=== PATIENT | male | born 1965 | race Caucasian/White ===

== ENCOUNTER 2020-06-03 13:51 | Inpatient (IN) | payer MEDICAID, OTHER ==
[~2020-06-03] VITALS: Ht 182.9 cm; Wt 120.0 kg
[2020-06-03] MEDS ORDERED: FUROSEMIDE 40 MG/4 ML VIAL IV ONE (14:00)
[2020-06-03 14:23] LABS: Basophils # (auto) 0.1 10 ^3/uL (0-0.2); Basophils % (auto) 1.3 % (0.0-2.0); Eosinophils # (auto) 0.1 10 ^3/uL (0-0.8); Eosinophils % (auto) 1.7 % (0.0-7.0); Hematocrit 47.8 % (41.0-53.0); Hemoglobin 15.9 g/dL (13.5-17.5); Lymphocytes # (auto) 1.9 10 ^3/uL (0.4-5.4); Lymphocytes % (auto) 27.3 % (10.0-50.0); Mean Corpuscular Hemoglobin 32.5 pg (28.0-32.0); Mean Corpuscular Hgb Conc. 33.2 g/dL (32.0-36.0); Mean Corpuscular Volume 97.9 fL (80.0-100.0); Monocytes # (auto) 0.8 10 ^3/uL (0-1.3); Monocytes % (auto) 11.7 % (0.0-12.0); Neutrophils # (auto) 4.1 10 ^3/uL (1.6-8.6); Nucleated Red Blood Cells % 0.1 %; Platelet Count (auto) 163 10^3/uL (140-450); Red Blood Cells 4.88 10^6/uL (4.5-5.90); White Blood Cell 7.1 10^3/uL (4.4-10.8)
[2020-06-03 14:38] LABS: Albumin 3.5 g/dL (3.4-5.0); BUN/Creatinine Ratio 24.2; Calcium 9.2 mg/dL (8.5-10.1); Magnesium 1.9 mg/dL (1.6-2.6); Potassium 4.6 mmol/L (3.5-5.1)
[2020-06-03 14:40] LABS: Bilirubin, Total 0.4 mg/dL (0.2-1.0); Total Protein 7.5 g/dL (6.4-8.2)
[2020-06-03 14:52] LABS: Urine Bacteria NONE SEEN /hpf (None Seen); Urine Blood Negative /uL (Negative); Urine Hyaline Cast MOD /lpf (0 - 2); Urine Specific Gravity 1.022 (1.001-1.035); Urine WBC 1 /hpf (0 - 3)
[2020-06-03] MEDS ORDERED: IOHEXOL 350 MG/ML 100ML IJ ONE (14:59)
[2020-06-03 15:10] LABS: Amphetamine Screen, Urine POSITIVE (NEGATIVE); Barbiturate Scree,Urine NEGATIVE (NEGATIVE); Benzodiazephine Screen, Urine NEGATIVE (NEGATIVE); Cannabinoid Screen, Urine NEGATIVE (NEGATIVE); Cocaine Screen, Urine NEGATIVE (NEGATIVE)
[2020-06-03 15:18] LABS: Opiate Scree,Urine NEGATIVE (NEGATIVE); Phencyclidine Screen, Urine NEGATIVE (NEGATIVE)
[2020-06-03] MEDS ORDERED: DEXTROSE (50%) 50ML SYRG IV PRN (16:00)
[2020-06-03] MEDS ORDERED: MORPHINE SULF INJ 2 MG/ML SYRINGE 1ML IV PRN (16:00)
[2020-06-03] MEDS ORDERED: NITROGLYCERIN 0.4 MG SL TAB SL PRN (16:00)
[2020-06-03] MEDS ORDERED: COLCHICINE 0.6 MG CAP PO PRN ×2 (16:00→16:30)
[2020-06-03] MEDS: InsuLIN REG 1unit/0.01ml Soln (100units/ml) SC SCH ×2 (17:00→22:00)
[2020-06-03] MEDS: ACCU-CHEK COMFORT CURVE STRIP VI SCH ×2 (17:11→22:00)
[2020-06-03 18:18] VITALS: BP 146/104
--- NOTE | 2020-06-03 18:45 | NUR ---
MD MCCLELLAN AT BEDSIDE UPDATED MD ON PATIENT'S STATUS. MD IS AWARE AND ORDERED LOVENOX TO BE HELD TOMORROW, NPO AFTER MIDNIGHT AND CONSENTS FOR [facility] TOMORROW. WILL FOLLOW THROUGH WITH ORDERS.
[2020-06-03] MEDS ORDERED: PNEUMOCOCCAL VACC POLYS 25 MCG/0.5 ML VIAL IM ONE (19:00)
--- NOTE | 2020-06-03 19:10 | NUR ---
Telemetry admit from [facility]O admitted to Telemetry unit after SBAR received from VARUN Dawson. Patient oriented to Mariana Rojo RN primary RN, unit, room, bed, and unit policies regarding patient care and visiting hours. Patient now on continuous telemetry monitoring, tele box #75 and telemetry reading on arrival to unit is Sinus Rhythm 80 bpm. Patient weighed by bed scale and encouraged to call if they need something. All questions and concerns addressed, patient verbalized understanding.
--- NOTE | 2020-06-03 19:12 | NUR ---
CLOSING SHIFT NOTE ENDORSED CARE TO [employer]GRAM[employer] RN RYAN. PATIENT HAS NO S/S OF DISTRESS/SOB OR PAIN AT THIS TIME.
[2020-06-03] MEDS ORDERED: SPIRONOLACTONE 25 MG TAB PO ONE (19:15)
[2020-06-03] MEDS ORDERED: FUROSEMIDE 20 MG/2 ML VIAL IV ONE (19:15)
--- NOTE | 2020-06-03 19:20 | NUR ---
Opening Shift Note Assumed care of patient after receiving report. Patient is awake and alert with no S/S of distress/SOB or pain. Call light within reach, bed in lowest locked position x2 side rails, HOB semi fowlers. Instructed on POC and to call for assist PRN, will continue to monitor for changes Q1hr and PRN.
--- NOTE | 2020-06-03 20:38 | NUR ---
US tech at bedside for MD ordered venous Doppler of bilateral lower extremities.
[2020-06-03 22:00] VITALS: BP 138/99
--- NOTE | 2020-06-04 04:00 | NUR ---
CHG wipes CHG wipes and complete linen change performed.
[2020-06-04 05:00] VITALS: BP 119/87
[2020-06-04] MEDS: InsuLIN REG 1unit/0.01ml Soln (100units/ml) SC SCH ×4 (06:23→21:12)
[2020-06-04] MEDS: ACCU-CHEK COMFORT CURVE STRIP VI SCH ×4 (06:23→21:12)
[2020-06-04 08:00] VITALS: BP 140/111
--- NOTE | 2020-06-04 08:00 | NUR ---
Opening Shift Note Assumed care of patient, awake and alert. No S/S of distress/SOB or pain. Insructed on POC and to callfor assist PRN, will continue to monitor for changes Q1hr and PRN.
[2020-06-04] MEDS: LISINOPRIL 20 MG TAB PO SCH (08:10)
--- NOTE | 2020-06-04 08:17 | NUR ---
Patient taken down to laboratory phlebotomist
[2020-06-04 08:34] VITALS: BP 139/106
[2020-06-04] MEDS: ALLOPURINOL 100 MG TAB PO SCH (08:43)
[2020-06-04] MEDS: ENOXAPARIN SOD 40 MG/0.4 ML SYRINGE SC SCH (08:44)
[2020-06-04 09:18] LABS: INR 1.01 (0.9-1.15); Partial Thromboplastin Time 24.8 sec (23.0-31.2)
[2020-06-04] MEDS ORDERED: SODIUM CHL 0.9% 0 ML ONE (09:44)
[2020-06-04] MEDS ORDERED: fentaNYL CITRATE 100 MCG/2 ML VL ONE (09:44)
[2020-06-04] MEDS ORDERED: HEPARIN SODIUM (PORCINE) 5000 UNITS/ML 1ML VIAL ONE (09:44)
[2020-06-04] MEDS ORDERED: MIDAZOLAM HCL 1MG/1ML-2 ML VIAL ONE (09:44)
[2020-06-04] MEDS ORDERED: VERAPAMIL 2.5MG/ML INJ 2ML VIAL IV ONE (09:44)
[2020-06-04] MEDS ORDERED: ANGIOMAX 250 MG VIAL IV ONE (09:44)
[2020-06-04] MEDS ORDERED: LIDOCAINE 2%HCL (LOCAL ANESTH.) INJ 20ML MDV ONE (09:45)
[2020-06-04] MEDS ORDERED: IODIXANOL 320MG/ML 100ML BTL IV ONE (09:49)
--- NOTE | 2020-06-04 10:00 | NUR ---
Intervention Note PT out of unit in laboratory clerk Addendum: 06/04/20 at 1020 by PAULA MAYBERRY RN RN Amended: Links added.
--- NOTE | 2020-06-04 10:14 | NUR ---
Intervention Note PT out of unit in ammunition assembly i laborer
--- NOTE | 2020-06-04 10:16 | NUR ---
Intervention Note PT out of unit in hot plate plywood press laborer
--- NOTE | 2020-06-04 10:17 | NUR ---
Intervention Note PT out of unit in optical laboratory technician Addendum: 06/04/20 at 1020 by PAULA MAYBERRY RN RN Amended: Links added.
--- NOTE | 2020-06-04 10:17 | NUR ---
Intervention Note PT out of unit in supervisor laboratory Addendum: 06/04/20 at 1020 by PAULA MAYBERRY RN RN Amended: Links added.
--- NOTE | 2020-06-04 10:18 | NUR ---
Intervention Note PT out of unit in labor supervisor Addendum: 06/04/20 at 1020 by PAULA MAYBERRY RN RN Amended: Links added.
--- NOTE | 2020-06-04 10:18 | NUR ---
Intervention Note PT out of unit in laboratory manager Addendum: 06/04/20 at 1020 by PAULA MAYBERRY RN RN Amended: Links added.
--- NOTE | 2020-06-04 10:20 | NUR ---
Intervention Note PT out of unit in mechanical laboratory technician Addendum: 06/04/20 at 1020 by PAULA MAYBERRY RN RN Amended: Links added.
--- NOTE | 2020-06-04 10:45 | NUR ---
Patient brought to recovery via bed, report received from VARUN Sanchez and VARUN Prince. Patient is AO x 4, no s/s of distress or SOB. Right radial site and right AC site are both benign, no s/s of bleeding or hematoma formation. Positive circulation, movement and sensation noted to bilateral extremities. Continuous pulse ox in place to right first finger. Patient educated on post-procedure care, verbalized understanding to instructions.
--- NOTE | 2020-06-04 11:02 | NUR ---
Report given to VARUN Ziegler.
--- NOTE | 2020-06-04 11:10 | NUR ---
Patient resting in bed with eyes closed, no s/s of distress. Right radial and right AC site remain unchanged.
--- NOTE | 2020-06-04 11:36 | NUR ---
Patient taken to telemetry unit via bed, monitor worker is in place. No s/s of distress noted upon departure. Primary RN, Loraine present at bedside to witness right radial and right AC site benign, no s/s of bleeding or hematoma. Bed is set in lowest locked position with side rails up x 2, call light is within reach and bed alarm set on for safety. Care endorsed to VARUN Baron.
--- NOTE | 2020-06-04 11:38 | NUR ---
Patient back from lab assistant Patient is s/p heart cath. Dressing to right AC clean, dry and intact. Vasc band to right wrist, no signs of bleeding or hematoma noted at this time. This RN instructed to begin removing air from vasc band at 1200. Patient is awake, alert and oriented x4. Vital signs assessed. Patient updated on plan of care, patient verbalized understanding. Bed in low and locked position, call light within reach. Will continue to monitor Q1 hour and PRN.
[2020-06-04 13:00] VITALS: BP 143/101
--- NOTE | 2020-06-04 13:21 | NUR ---
Vasc Band removal Vasc band removed at this time and pressure dressing applied. No signs of hematoma, bleeding. Circulation intact. Instructed pt on education regarding vasc band removal.
[2020-06-04 17:00] VITALS: BP 150/100
--- NOTE | 2020-06-04 17:45 | NUR ---
Dr. Basurto at nurse station MD at station updating this RN on plan of care. New orders placed. Will continue to monitor Q1 hour and PRN.
--- NOTE | 2020-06-04 19:13 | NUR ---
Closing Note Report given to night order selector RN. No signs or symptoms of distress noted at this time.
[2020-06-04] MEDS: GABAPENTIN 300 MG CAP PO PRN (19:17)
[2020-06-04] MEDS: SILDENAFIL CITRATE 20 MG TAB PO SCH (19:17)
--- NOTE | 2020-06-04 20:00 | NUR ---
Opening Shift Note Assumed care of patient, awake and alert. No S/S of distress/SOB or pain. Instructed on POC and to call for assist PRN, will continue to monitor for changes Q1hr and PRN.
[2020-06-04 22:00] VITALS: BP 139/87
[2020-06-05] MEDS: GABAPENTIN 300 MG CAP PO PRN (04:56)
[2020-06-05 05:00] VITALS: BP 98/73
[2020-06-05] MEDS: InsuLIN REG 1unit/0.01ml Soln (100units/ml) SC SCH ×2 (06:39→11:30)
[2020-06-05] MEDS: ACCU-CHEK COMFORT CURVE STRIP VI SCH ×2 (06:39→11:30)
--- NOTE | 2020-06-05 07:30 | NUR ---
Opening Note Received report from night worker RN. Patient is awake, alert and oriented x4. No signs or symptoms of distress noted at this time. Patient denies pain or shortness of breath at this time. Patient is on room air, respirations even and unlabored. Reviewed plan of care with patient, patient verbalized understanding. Bed in low and locked position, call light within reach. Will continue to monitor Q1 hour and PRN.
[2020-06-05 08:00] VITALS: BP 137/91
[2020-06-05] MEDS: SILDENAFIL CITRATE 20 MG TAB PO SCH (08:00)
[2020-06-05 09:00] VITALS: BP 137/91
[2020-06-05] MEDS: ENOXAPARIN SOD 40 MG/0.4 ML SYRINGE SC SCH (10:00)
[2020-06-05] MEDS: ALLOPURINOL 100 MG TAB PO SCH (10:03)
[2020-06-05] MEDS: LISINOPRIL 20 MG TAB PO SCH (10:03)
[2020-06-05] MEDS ORDERED: SILD20TA PO (10:47)
[2020-06-05 11:38] VITALS: BP 125/89
--- NOTE | 2020-06-05 12:16 | NUR ---
Discharge Discharge instructions given as ordered. Encourage to follow up with PMD as instructed. All questions and concerns addressed. Patient verbalized understanding. Medication reconciliation form completed and copy given to patient. IV removed with catheter intact, pressure dressing applied. weight control engineer removed and sent back to ICU. Patient ambulated to private vehicle with all personal belongings, accompanied by this RN. No signs or symptoms of distress noted at this time. Patient instructed to excelsior picker medications from preferred pharmacy.
[2020-06-05 12:56] VITALS: BP 150/83
== END 2020-06-05 12:20 | disposition home or self-care (01) | DRG 192 ==
LOC: ER 13:51 → TELE 13:52 → TELE-WESTW 17:56
PROVIDERS: ADMIT Hospitalist; ATTEND Hospitalist
PROC: B2111ZZ Fluoroscopy of Multiple Coronary Arteries using Low Osmolar Contrast (ICD-10-PCS; principal; 2020-06-04)
PROC: 4A023N8 Measurement of Cardiac Sampling and Pressure, Bilateral, Percutaneous Approach (ICD-10-PCS; 2020-06-04)
PROC: B2161ZZ Fluoroscopy of Right and Left Heart using Low Osmolar Contrast (ICD-10-PCS; 2020-06-04)
DX: I27.0 Primary pulmonary hypertension (principal); J96.01 Acute respiratory failure with hypoxia; N17.9 Acute kidney failure, unspecified; F15.10 Other stimulant abuse, uncomplicated; I50.810 Right heart failure, unspecified; J44.9 Chronic obstructive pulmonary disease, unspecified; Z85.6 Personal history of leukemia; E11.9 Type 2 diabetes mellitus without complications; J98.11 Atelectasis; Z82.49 Family history of ischemic heart disease and other diseases of the circulatory system; R94.31 Abnormal electrocardiogram [ECG] [EKG]; F17.200 Nicotine dependence, unspecified, uncomplicated
CPT/HCPCS: 36415; 71046; 71275; 80053; 80307; 81001; 82962; 83735; 83880; 85025; 85379; 85610; 85730; 86850; 86900; 86901; 93005; 93306; 93970; 99152; 99153; C1751; G0378; J2250; Q9967

== ENCOUNTER 2024-02-27 14:45 | Emergency (ER) | payer MEDICAID ==
[~2024-02-27] VITALS: Ht 182.9 cm; Wt 115.0 kg
[~2024-02-27 14:45] MED LIST: SILD20TA PO
[2024-02-27 16:41] LABS: Basophils # (auto) 0.1 10 ^3/uL (0-0.2); Basophils % (auto) 0.8 % (0.0-2.0); Eosinophils # (auto) 0.1 10 ^3/uL (0-0.8); Eosinophils % (auto) 1.1 % (0.0-7.0); Hematocrit 55.3 % (41.0-53.0); Hemoglobin 18.2 g/dL (13.5-17.5); Lymphocytes % (auto) 16.4 % (10.0-50.0); Mean Corpuscular Hemoglobin 30.9 pg (28.0-32.0); Mean Corpuscular Volume 93.8 fL (80.0-100.0); Neutrophils # (auto) 7.7 10 ^3/uL (1.6-8.6); Neutrophils % (auto) 64.7 % (37.0-80.0); Nucleated Red Blood Cells % 0.1 %; Red Blood Cells 5.89 10^6/uL (4.5-5.90)
[2024-02-27] MEDS: HYDROcodone-ACET 10/325MG TAB PO ONE (16:55)
[2024-02-27] MEDS: TETANUS-DIPTH-ACEL PERTUSSIS 0.5ML SYR Tdap IM ONE (16:57)
[2024-02-27 16:59] LABS: Alanine Aminotransferase 33 U/L (7-40); Alkaline Phosphatase 118 U/L (46-116); Anion Gap 7 (5-15); Aspartate Aminotransferase 41 U/L (13-40); BUN/Creatinine Ratio 9.2 (10.0-20.0); Bilirubin, Total 0.9 mg/dL (0.2-1.0); Blood Urea Nitrogen 11 mg/dL (9-23); Calcium 9.6 mg/dL (8.5-10.1); Carbon Dioxide 20 mmol/L (20-30); Chloride 104 mmol/L (98-107); Glucose 124 mg/dL (74-106); Potassium 4.1 mmol/L (3.5-5.1); Sodium 131 mmol/L (136-145); Total Protein 7.3 g/dL (5.7-8.2)
[2024-02-27 17:11] LABS: Lactic Acid w/Reflex 2.9 mmol/L (0.4-2.0)
[2024-02-27] MEDS: CEPHALEXIN 250 MG CAP PO ONE (18:00)
[2024-02-27] MEDS: SODIUM CHLORIDE 0.9% 1,000 ML IV ONE (18:00)
[2024-02-27] MEDS: NEOMYCIN-BACITRACIN-POLYM UNITDOSE PKG TOP OINT TOP ONE (18:00)
[2024-02-27] MEDS ORDERED: CEPH500C PO (18:11)
[2024-02-27] MEDS ORDERED: IBUP-1456 PO (18:11)
[2024-02-27] MEDS ORDERED: ACE3T PO (18:11)
[2024-02-27 19:55] VITALS: BP 123/86; PULSE 86; RESP 18; TEMP 98.6; O2SAT 95
== END 2024-02-27 19:55 | disposition home or self-care (01) ==
LOC: ER 14:45
DX: T25.222A Burn of second degree of left foot, initial encounter (principal); T25.221A Burn of second degree of right foot, initial encounter; I10 Essential (primary) hypertension; E11.9 Type 2 diabetes mellitus without complications; Z87.891 Personal history of nicotine dependence; Z79.899 Other long term (current) drug therapy; X19.XXXA Contact with other heat and hot substances, initial encounter; Y93.89 Activity, other specified; Y92.89 Other specified places as the place of occurrence of the external cause; Y99.8 Other external cause status
CPT/HCPCS: 36415; 73700; 80053; 83605; 83880; 85025; 90471; 90715; 96360; 99285; J7030